=== PATIENT | male | born 1930 | race Caucasian/White ===

== ENCOUNTER 2017-08-11 13:06 | Inpatient (IN) ==
--- NOTE | 2017-08-11 13:31 | Emergency Department Report ---
Cardiac General HPI - General Stated Complaint: low pulse Time Seen by Provider: 08/11/17 13:31 - Related Data Home Medications Medication Instructions Recorded Confirmed Doxazosin Mesylate [Cardura] 4 mg PO DAILY #0 11/04/15 06/19/17 cholecalciferol (vitamin D3) 2,000 2,000 unit PO DAILY cap 12/22/16 06/19/17 unit capsule clotrimazole-betamethasone 1 1 applicatio TOP .COMPLEX PRN 12/22/16 06/19/17 %-0.05 % topical cream metoprolol tartrate 25 mg tablet 25 mg PO BID 12/22/16 06/19/17 Previous Rx's Medication Instructions Recorded Triderm (Triamcinolone acetonide 1 applicatio TOP BID #453.6 g 12/23/16 0.1 %) topical cream Allergies Allergy/AdvReac Type Severity Reaction Status Date / Time No Known Drug Allergies Allergy Unknown Verified 11/04/15 11:02 [facility] Medical History Dementia (Chronic Medical) Cluster headaches (Chronic Medical) Dyslipidemia (Chronic Medical) Macular degeneration (Chronic Medical) Hx of adenomatous colonic polyps (Chronic Medical) 1985 Hx of migraine headaches (Chronic Medical) Impotence due to erectile dysfunction (Chronic Medical) HTN (hypertension) (Chronic Medical) Surgical History: Hernia repair 1975. Eye surgery 1973 Family History: Family History Father , at age 61 Heart attack at age 56 Cancer of colon CAD (coronary artery disease) Maternal Grandfather Prostate cancer Mother , at age 89 No problems noted. - Social History Smoking status: Never smoker Alcohol intake frequency: does not drink Household members: none Current occupational status: retired Disposition Prescriptions: No Action Doxazosin Mesylate [Cardura] 4 mg PO DAILY #0 clotrimazole-betamethasone 1 %-0.05 % topical cream 1 applicatio TOP .COMPLEX PRN metoprolol tartrate 25 mg tablet 25 mg PO BID cholecalciferol (vitamin D3) 2,000 unit capsule 2,000 unit PO DAILY cap Triderm (Triamcinolone acetonide 0.1 %) topical cream 1 applicatio TOP BID # 453.6 g
[2017-08-11] MEDS: SALINE FLUSH 10ml SYRINGE IVF PRN (13:52)
--- NOTE | 2017-08-11 14:37 | XRay Report ---
Indication: bradycardia, pausing, cardiac eval PROCEDURE: XR chest 1V: Encounter: Initial Comparison: 11/04/2015 Findings: There is prominence of the cardiac silhouette which may be accentuated by the AP portable technique. The lungs are clear. There is no focal opacity to suggest atelectasis or pneumonia. No mediastinal or hilar adenopathy. No pleural effusion. There is no significant tortuosity of the descending thoracic aorta. There is mild degenerative disc disease of the thoracic spine. IMPRESSION: No acute process. .
--- NOTE | 2017-08-11 16:57 | Cardiology History & Physical ---
History of Present Illness Chief complaint: Bradycardia HPI: Gen is a 87 year old male who is known to Dr. Garcia's practice with a history of frequent PVCs, HTN, HLD, nonrheumatic tricuspid valve disorder and pulmonary HTN. Today he went to donate blood and was told is HR was too slow and he reports that it was 40, he then went to his PCPs office Dr. Craig, and they advised he go to the ED for evaluation. In the ED his EKG showed Sinus rhythm with PACs and pauses and his rate was consistently over 60. He denies any complaints such as dizziness, lightheadedness, chest pain, dyspnea. He denies recent illness, fever, chills, sore throat, cough, palpitations, N/V/D, dysuria, edema. Review of Systems - Constitutional Constitutional: Present: as per HPI - EENMT Balance: Absent: vertigo Mouth/Throat: Present: as per HPI - Cardiovascular Cardiovascular: Absent: chest pain, palpitations, syncope, dyspnea on exertion, orthopnea, edema Rhythm: Present: abnormal rhythm Vascular: Absent: pedal edema - Respiratory Respiratory: Present: as per HPI - Gastrointestinal Gastrointestinal: Present: as per HPI - Genitourinary Genitourinary: Present: as per HPI - Integumentary/Breasts Integumentary: Absent: rash - Neurological Neurological: Present: as per HPI. Absent: dizziness - Endocrine Endocrine: Present: as per HPI. Absent: palpitations PFSH Patient Stated Medical History Hearing Loss Yes: BILAT HEARING AIDS Hypertension Yes Clinic Medical History Dementia (Chronic Medical) Cluster headaches (Chronic Medical) Dyslipidemia (Chronic Medical) Macular degeneration (Chronic Medical) Hx of adenomatous colonic polyps (Chronic Medical) 1985 Hx of migraine headaches (Chronic Medical) Impotence due to erectile dysfunction (Chronic Medical) HTN (hypertension) (Chronic Medical) Surgical History: Hernia repair 1975. Eye surgery 1973 Family History: Family History Father , at age 61 Heart attack at age 56 Cancer of colon CAD (coronary artery disease) Maternal Grandfather Prostate cancer Mother , at age 89 No problems noted. - Social History Smoking status: Never smoker Substance use type: does not use Alcohol intake frequency: does not drink Housing: house Household members: none Current occupational status: retired Current residence: Apartment/Private Home Medications Home Medications Medication Instructions Recorded Confirmed Type Doxazosin Mesylate [Cardura] 4 mg PO DAILY #0 11/04/15 08/11/17 History Metoprolol Tartrate [Lopressor] 25 mg PO BID 08/11/17 08/11/17 History Allergies Allergy/AdvReac Type Severity Reaction Status Date / Time No Known Drug Allergies Allergy Unknown Verified 08/11/17 13:52 Exam Vital signs: Temperature 97.1 F 08/11/17 13:32 Pulse Rate 65 08/11/17 16:30 Respiratory Rate 14 08/11/17 16:30 Blood Pressure 163/109 H 08/11/17 16:30 Pulse Oximetry 97 08/11/17 16:30 - Constitutional no acute distress, well nourished, cooperative - Routine HEENT Exam Head: Present: normocephalic Nose: moist mucous membranes - Routine Neck Exam Absent: JVD, carotid bruit - Routine Chest/Breast/Axilla Exam Chest wall: Absent: tenderness - Routine Respiratory Exam Present: CTA bilaterally. Absent: dyspnea, rales, wheezes - Routine Cardiovascular Exam Present: RRR, S1, S2, no murmur - Routine Abdominal Exam Present: soft, normoactive bowel sounds - Routine Extremities Exam Present: no edema, pulses intact - Routine Skin Exam Present: intact, dry, warm - Routine Neurological Exam Present: alert - Routine Psychiatric Exam Present: normal affect Results 08/12/17 04:59 08/12/17 04:59 Cardiac Enzymes 08/11/17 Range/Units 13:53 AST 12 L (17-59) U/L Troponin I < 0.012 (0-0.12) ng/ml CBC 08/11/17 Range/Units 13:53 WBC 6.6 (4.5-11.0) T/MM3 RBC 5.17 (4.50-5.90) M/MM3 Hgb 13.4 L (13.5-17.5) GM/DL Hct 42.3 (41-53) % Plt Count 179 (130-400) T/MM3 Neut # (Auto) 4.4 (1.8-7.7) T/MM3 Lymph # (Auto) 1.6 (1-4.8) T/MM3 Banks # (Auto) 0.5 (0-0.8) T/MM3 Eos # (Auto) 0.1 (0-0.5) T/MM3 Baso # (Auto) 0.0 (0-0.2) T/MM3 Comprehensive Metabolic Panel 08/11/17 Range/Units 13:53 Sodium 143 (134-144) MEQ/L Potassium 4.1 (3.6-5) MEQ/L Chloride 105 (98-107) MEQ/L Carbon Dioxide 28 (22-30) MEQ/L BUN 18.0 (9-20) MG/DL Creatinine 1.1 (0.8-1.5) mg/dL Glucose 92 (75-110) MG/DL Calcium 8.9 (8.4-10.2) MG/DL AST 12 L (17-59) U/L ALT 15 (1-50) U/L Alkaline Phosphatase 63 (38-126) U/L Total Protein 6.7 (6.3-8.2) g/dL Albumin 3.8 (3.5-5.0) g/dL Intake and Output 08/11/17 08/11/17 08/11/17 06:59 14:59 22:59 Other: Weight 176 lb Patient Weight 08/12/17 06:59 Weight 176 lb - Imaging and Cardiology Echo: pending Imaging & Cardiology Narrative: Date of Exam: 08/11/17 Ordering Provider: Sam Cervantes MD Type of Exam(s): XR chest 1V Reason for Exam(s): bradycardia, pausing, cardiac eval Indication: bradycardia, pausing, cardiac eval PROCEDURE: XR chest 1V: Encounter: Initial Comparison: 11/04/2015 Findings: There is prominence of the cardiac silhouette which may be accentuated by the AP portable technique. The lungs are clear. There is no focal opacity to suggest atelectasis or pneumonia. No mediastinal or hilar adenopathy. No pleural effusion. There is no significant tortuosity of the descending thoracic aorta. There is mild degenerative disc disease of the thoracic spine. IMPRESSION: No acute process. 08/11/17 17:05 EKG interpretations - EKG EKG results cardiology: sinus rhythm - Dysrhythmias Supraventricular dysrhythmia: atrial premature complexes Hospital Course This is a general summary of the patient's hospital course. For more details refer to the complete medical record. Time spent with patient: 25 - 35 minutes Resuscitation Status: Full Code Assessment and Plan - Attestation Attestation Narrative: 08/12/17 13:41 Recommendation After examining the patient I agree with the above assessment. I am involved in the formulation of the patient's plan of care. 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 - Continue to monitor, may need to start Flecainide (4) Nonrheumatic tricuspid valve disorder Current visit: Yes Status: Chronic (5) Pulmonary hypertension Current visit: Yes Status: Chronic Condition is stable. Routine monitoring (6) Dyslipidemia Current visit: No Status: Chronic - Assessment and Plan Bradycardia:Stop Metoprolol - Continue to monitor - EKG appears Sinus with PACs and pause - Check TSH and Mag - 2D echo pending HTN: Hydralazine 10mg IV X1 - Nifedipine 60mg po now and daily PVCs: Hold Metoprolol due to pauses. - Continue to monitor, may need to start Flecainide Pulm HTN: Condition is stable. Routine monitoring NR TV disorder:Condition is stable. Routine monitoring HLD: PCP manages
[2017-08-11] MEDS ORDERED: SALINE FLUSH 10ml SYRINGE IV PRN (17:11)
[2017-08-11 17:13] VITALS: BMI 26.6
[2017-08-11] MEDS ORDERED: HYDRALAZINE 20 MG/ML INJECTION IVP ONE (17:40)
[2017-08-12] MEDS: DOXAZOSIN 4 MG TABLET PO SCH (08:21)
[2017-08-12] MEDS: ENOXAPARIN 40 MG/0.4 ML INJECTION SQ SCH (08:22)
--- NOTE | 2017-08-12 08:43 | CT Scan Report ---
Indication: stroke response PROCEDURE: CT head/brain wo con: Encounter: Initial Comparison: November 04, 2015 Technique: Axial CT images through the head were performed without contrast. Iterative Reconstruction dose reducing technique was utilized. FINDINGS: The ventricles are of normal size, shape, and contour for the patient's age. There are multiple areas of low attenuation in the white matter which most likely represent changes from chronic microvascular ischemia. The brainstem, cerebellum, and cerebral hemispheres otherwise have a normal morphology and CT attenuation. There is no evidence of midline displacement. No hemorrhage, signs of acute territorial stroke, mass effect, mass lesions, or edema is evident. The visualized portions of the skull base, midface, and calvarium demonstrate no abnormality. The paranasal sinuses are well aerated and free of significant disease. The tympanic and mastoid cavities appear normal. IMPRESSION: No acute intracranial hemorrhage or extended infarct signs. Is there is continued clinical concern for acute ischemia, MRI could be performed for further evaluation. There is a preliminary report by [employer]. .
--- NOTE | 2017-08-12 10:21 | Cardiology Progress Note ---
<Theresa Evans - Last Filed: 08/12/17 14:36> Subjective Principal diagnosis: bradycardia Interval history: Gen is seen in follow up for bradycardia and HTN. He is sitting up eating breakfast, BP is much improved, heart rate in the 80s after holding Metoprolol. Overnight he reported some blurry vision and slow verbal response. He denies chest pain, pressure, palpitations, dyspnea or dizziness. Exam Vital signs: Temperature 97.9 F 08/12/17 07:31 Pulse Rate 84 08/12/17 08:30 Respiratory Rate 32 H 08/12/17 08:30 Blood Pressure 115/74 08/12/17 08:30 Pulse Oximetry 95 08/12/17 08:30 Inpatient Medications: Generic Name Dose Route Start Last Admin Trade Name Freq PRN Reason Stop Dose Admin Aspirin 81 mg 08/12/17 09:00 Ecotrin PO DAILY MALGORZATA Doxazosin Mesylate 4 mg 08/12/17 09:00 08/12/17 08:21 Cardura PO 4 mg DAILY MALGORZATA Administration Enoxaparin Sodium 40 mg 08/12/17 09:00 08/12/17 08:22 Lovenox SQ 40 mg DAILY MALGORZATA Administration Nifedipine 60 mg 08/11/17 18:00 08/11/17 20:49 Procardia Xl PO 60 mg DAILY MALGORZATA Administration Sodium Chloride 10 - 80 ml 08/11/17 13:36 08/11/17 13:52 Iv Flush IVF 10 ml PRN PRN Administration Flushing Sodium Chloride 10 - 80 ml 08/11/17 17:11 Iv Flush IV PRN PRN Flushing Discontinued Medications Generic Name Dose Route Start Last Admin Trade Name Freq PRN Reason Stop Dose Admin Hydralazine HCl 10 mg 08/11/17 17:40 08/11/17 18:35 Apresoline IVP 08/11/17 17:41 10 mg O ONE Administration Sodium Chloride 500 mls @ 500 mls/hr 08/11/17 13:36 08/11/17 16:55 Normal Saline IV 08/11/17 14:35 Infused .Q1H ONE Infusion - Constitutional no acute distress, well nourished, cooperative - Routine HEENT Exam Head: Present: normocephalic ENT: Present: mucous membranes moist - Routine Neck Exam Absent: JVD, carotid bruit - Routine Chest/Breast/Axilla Exam Chest wall: Absent: tenderness - Routine Respiratory Exam Present: CTA bilaterally. Absent: rales, wheezes - Routine Cardiovascular Exam Present: RRR, S1, S2, no murmur - Routine Abdominal Exam Present: soft, normoactive bowel sounds, non tender - Routine Extremities Exam Present: no edema - Routine Skin Exam Present: intact, dry, warm - Routine Neurological Exam Present: alert. Absent: hearing grossly intact - Routine Psychiatric Exam Present: normal affect Results 08/12/17 04:59 08/12/17 04:59 Cardiac Enzymes 08/11/17 08/12/17 Range/Units 17:31 00:13 Troponin I < 0.012 < 0.012 (0-0.12) ng/ml Coagulation 08/11/17 Range/Units 20:40 APTT 27.5 (24-36) SEC CBC 08/11/17 08/12/17 Range/Units 20:40 04:59 WBC 6.2 6.9 (4.5-11.0) T/MM3 RBC 5.42 5.36 (4.50-5.90) M/MM3 Hgb 14.0 13.7 (13.5-17.5) GM/DL Hct 44.0 43.0 (41-53) % Plt Count 182 180 (130-400) T/MM3 Neut # (Auto) 3.9 (1.8-7.7) T/MM3 Lymph # (Auto) 1.6 (1-4.8) T/MM3 Wilkin # (Auto) 0.4 (0-0.8) T/MM3 Eos # (Auto) 0.2 (0-0.5) T/MM3 Baso # (Auto) 0.0 (0-0.2) T/MM3 Comprehensive Metabolic Panel 08/12/17 Range/Units 04:59 Sodium 144 (134-144) MEQ/L Potassium 3.8 (3.6-5) MEQ/L Chloride 109 H (98-107) MEQ/L Carbon Dioxide 24 (22-30) MEQ/L BUN 18.0 (9-20) MG/DL Creatinine 0.9 D (0.8-1.5) mg/dL Glucose 93 (75-110) MG/DL Calcium 8.6 (8.4-10.2) MG/DL Intake and Output 08/11/17 08/12/17 08/12/17 22:59 06:59 14:59 Intake Total 620 / 620 240 / 240 Balance 620 / 620 240 / 240 Intake: IV 500 / 500 NS 500ml 500 ml @ 500 mls/hr IV 500 / 500 .Q1H ONE Rx#:[id number] Oral 120 / 120 240 / 240 Other: Stool Color Brown Stool Consistency Soft Size of Bowel Movement Small # Voids 1 1 # Bowel Movements 1 Weight 169 lb 15.622 oz - Imaging and Cardiology Echo: pending Imaging & Cardiology Narrative: Date of Exam: 08/11/17 Ordering Provider: Crystal Reagan APRN Type of Exam(s): CT head/brain wo con Reason for Exam(s): stroke response Indication: stroke response PROCEDURE: CT head/brain wo con: Encounter: Initial Comparison: November 04, 2015 Technique: Axial CT images through the head were performed without contrast. Iterative Reconstruction dose reducing technique was utilized. FINDINGS: The ventricles are of normal size, shape, and contour for the patient's age. There are multiple areas of low attenuation in the white matter which most likely represent changes from chronic microvascular ischemia. The brainstem, cerebellum, and cerebral hemispheres otherwise have a normal morphology and CT attenuation. There is no evidence of midline displacement. No hemorrhage, signs of acute territorial stroke, mass effect, mass lesions, or edema is evident. The visualized portions of the skull base, midface, and calvarium demonstrate no abnormality. The paranasal sinuses are well aerated and free of significant disease. The tympanic and mastoid cavities appear normal. IMPRESSION: No acute intracranial hemorrhage or extended infarct signs. Is there is continued clinical concern for acute ischemia, MRI could be performed for further evaluation. There is a preliminary report by [employer] [facility]. 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 - Continue to monitor, may need to start Flecainide Pulm HTN: Condition is stable. Routine monitoring NR TV disorder:Condition is stable. Routine monitoring HLD: PCP manages 08/12/[address] Medina for neuro symptoms ( Thank you for your assistance) - MRI brain/head w/o contrast - Aspirin 81mg daily Worsened frequency since stopping Metoprolol - Start Flecainide 100mg po then 50mg BID - EKG in am Hospital Course Summary Disclaimer: The visit summary below is not to be considered part of the above Progress Note. <Axel Garcia - Last Filed: 08/13/17 12:08> Exam Vital signs: Temperature 98.1 F 08/13/17 11:04 Pulse Rate 81 08/13/17 11:38 Respiratory Rate 16 08/13/17 11:04 Blood Pressure 126/75 08/13/17 11:04 Pulse Oximetry 94 08/13/17 11:04 Inpatient Medications: Generic Name Dose Route Start Last Admin Trade Name Freq PRN Reason Stop Dose Admin Aspirin 81 mg 08/12/17 09:00 08/13/17 08:44 Ecotrin PO 81 mg DAILY MALGORZATA Administration Doxazosin Mesylate 4 mg 08/12/17 09:00 08/13/17 08:45 Cardura PO 4 mg DAILY MALGORZATA Administration Enoxaparin Sodium 40 mg 08/12/17 09:00 08/13/17 08:45 Lovenox SQ 40 mg DAILY MALGORZATA Administration Flecainide Acetate 50 mg 08/12/17 21:00 08/13/17 08:44 Tambocor PO 50 mg BID MALGORZATA Administration Nifedipine 60 mg 08/11/17 18:00 08/13/17 08:46 Procardia Xl PO 60 mg DAILY MALGORZATA Administration Sodium Chloride 10 - 80 ml 08/11/17 13:36 08/12/17 20:00 Iv Flush IVF 10 ml PRN PRN Administration Flushing Sodium Chloride 10 - 80 ml 08/11/17 17:11 Iv Flush IV PRN PRN Flushing Discontinued Medications Generic Name Dose Route Start Last Admin Trade Name Freq PRN Reason Stop Dose Admin Flecainide Acetate 100 mg 08/12/17 13:50 08/12/17 14:16 Tambocor PO 08/12/17 13:51 100 mg O ONE Administration Hydralazine HCl 10 mg 08/11/17 17:40 08/11/17 18:35 Apresoline IVP 08/11/17 17:41 10 mg O ONE Administration Sodium Chloride 500 mls @ 500 mls/hr 08/11/17 13:36 08/11/17 16:55 Normal Saline IV 08/11/17 14:35 Infused .Q1H ONE Infusion Results 08/12/17 04:59 08/12/17 04:59 Intake and Output 08/12/17 08/13/17 08/13/17 22:59 06:59 14:59 Intake Total 840 / 840 50 / 50 590 / 590 Balance 840 / 640 50 / 50 590 / 590 Intake: Oral 840 / 840 50 / 50 590 / 590 Other: Urine Appearance Clear Urine Color Yellow Urine Odor Normal # Voids 1 1 # Incontinent Voids 1 Weight 76.3 kg Patient Weight 08/14/17 06:59 Weight 76.3 kg Assessment and Plan - Assessment and Plan (1) HTN (hypertension) Current visit: No Status: Chronic (2) Dyslipidemia Current visit: No Status: Chronic (3) Nonrheumatic tricuspid valve disorder Current visit: Yes Status: Chronic (4) Pulmonary hypertension Current visit: Yes Status: Chronic (5) 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 I am involved in the formulation of the patient's plan of care. Hospital Course Summary Disclaimer: The visit summary below is not to be considered part of the above Progress Note.
--- NOTE | 2017-08-12 12:42 | Magnetic Resonance Report ---
Indication: slurred speech, vision changes PROCEDURE: MR head/brain wo con: Encounter: Initial Comparisons: Head CT from yesterday Technique: Multiplanar, multisequence, MR imaging of the head without contrast was acquired. FINDINGS: Motion artifact. Moderate generalized atrophy. The ventricles are of normal size, shape, and contour for the patient's age. There are small nonspecific punctate areas of T2-weighted and T2 FLAIR weighted signal abnormality in the deep frontoparietal white matter that most likely represent small vessel ischemic disease. This is of a degree that is considered to be normal for the patient's age. The brain stem, cerebellum, and cerebral hemispheres otherwise have a normal morphologic appearance as well as MR signal intensity on all pulse sequences. There are no areas of restricted diffusion on diffusion weighted imaging to suggest an acute infarct. There is no evidence of an intracranial mass lesion, intracranial hemorrhage, or hydrocephalus. The visualized portions of the orbits, calvarium, paranasal sinuses, and skull base demonstrate no significant abnormality. IMPRESSION: Slightly limited exam due to motion artifact. No acute infarct or acute intracranial abnormality seen. .
[2017-08-12] MEDS ORDERED: FLECAINIDE 100 MG TABLET PO ONE (13:50)
[2017-08-12] MEDS: ASPIRIN *EC* 81 MG TABLET PO SCH (14:17)
--- NOTE | 2017-08-12 14:40 | Echocardiogram ---
DATE OF PROCEDURE August 11, 2017 This is a two-dimensional echo with spectral Doppler, color-flow and M-mode. It was obtained in a patient with bradycardia. Left atrium is dilated. Left ventricular end-diastolic dimension is normal. Left ventricle wall thickness is increased. LV systolic function is normal with ejection fraction of about 59%. Right atrium is normal. Right ventricle is normal. Aortic root dimension is mildly increased. Mitral valve is morphologically normal with moderate mitral regurgitation. Aortic valve is a trileaflet structure with no stenosis or insufficiency. Tricuspid valve shows moderate tricuspid regurgitation with moderate pulmonary hypertension with estimated pulmonary artery systolic pressure of 61. Pulmonary valve shows mild pulmonary insufficiency. There is trace of pericardial effusion with no echocardiographic evidence of tamponade. IMPRESSION 1. Normal LV systolic function with ejection fraction of 59%. 2. Left atrial dilation. 3. Mild aortic root dilation at 3.8 cm. 4. Concentric left ventricular hypertrophy. 5. Moderate mitral regurgitation. 6. Moderate tricuspid regurgitation with moderate pulmonary hypertension with estimated pulmonary artery systolic pressure of 61. 7. Mild pulmonary insufficiency. 8. Trace of pericardial effusion with no echocardiographic evidence of tamponade. MTDD
--- NOTE | 2017-08-12 14:52 | Consultation ---
DATE OF CONSULTATION 08/12/[address] Garcia CHIEF COMPLAINT Blurry vision. HISTORY OF PRESENT ILLNESS The patient is an 87-year-old male with history of dementia, cluster headache, dyslipidemia, macular degeneration, hypertension and coronary artery disease. The patient presented to [facility] with sudden-onset bradycardia and fatigue. The patient was trying to donate blood earlier yesterday in [place], [place] and he was found to have a heart rate in the 40s. The patient was brought to [facility] and he was admitted to the ICU. He has had episodes of blurry vision and difficulty reading what's written on the TV screen. This happened twice since admission. The first time was yesterday evening and this happened again earlier this morning. The patient denies having any headache or vision loss in either eye. He has had no focal weakness or numbness. There was no obvious change in his speech or language witnessed by the nurse or the other physicians. The patient is currently stable and has no particular complaints. PHYSICAL EXAMINATION The patient was awake, alert, oriented x 3. Speech was slightly dysarthric earlier in the conversation and this has improved gradually during the conversation. He had no difficulty naming or listing items. His pupils were round, reactive and equal. The extraocular muscles were intact. Visual field was full. Motor examination in the extremities was 5/5. Sensory examination was symmetrical to light touch and temperature sensation. Deep tendon reflexes were 2/4. Plantar reflexes were equivocal bilaterally. Coordination for finger -to-nose was slow bilaterally. ASSESSMENT 1. Recurrent blurry vision which can be associated with hypotension and change in heart rate. This was not fully appreciated based on the patient's monitoring. 2. We cannot rule out a small vessel stroke causing the patient to have difficulty reading and expressing himself. PLAN 1. Agree with MRI of the brain to rule out acute ischemic stroke. 3. Monitor the patient's blood pressure and heart rate closely and provide good fluid intake. 4. If the patient's vision keeps fluctuating he may need to have an eye examination in the outpatient setting. JOSE
[2017-08-12] MEDS: FLECAINIDE 100 MG TABLET PO SCH (20:00)
[2017-08-12] MEDS: SALINE FLUSH 10ml SYRINGE IVF PRN (20:00)
[2017-08-13 07:30] VITALS: RESP 16
[2017-08-13] MEDS: FLECAINIDE 100 MG TABLET PO SCH (08:44)
[2017-08-13] MEDS: ASPIRIN *EC* 81 MG TABLET PO SCH (08:44)
[2017-08-13] MEDS: DOXAZOSIN 4 MG TABLET PO SCH (08:45)
[2017-08-13] MEDS: ENOXAPARIN 40 MG/0.4 ML INJECTION SQ SCH (08:45)
[2017-08-13 11:05] VITALS: TEMP 98.1
--- NOTE | 2017-08-13 11:55 | Discharge Summary ---
<Theresa Evans - Last Filed: 08/13/17 11:52> Discharge Information Date of admission: 08/12/17 16:29 Anticipated date of discharge: 08/13/17 Attending Physician: Axel Garcia MD Primary care physician: Freddie Craig MD Consults: DATE OF CONSULTATION 08/12/[address] Garcia CHIEF COMPLAINT Blurry vision. HISTORY OF PRESENT ILLNESS The patient is an 87-year-old male with history of dementia, cluster headache, dyslipidemia, macular degeneration, hypertension and coronary artery disease. The patient presented to [facility] with sudden-onset bradycardia and fatigue. The patient was trying to donate blood earlier yesterday in [place], [place] and he was found to have a heart rate in the 40s. The patient was brought to [facility] and he was admitted to the ICU. He has had episodes of blurry vision and difficulty reading what's written on the TV screen. This happened twice since admission. The first time was yesterday evening and this happened again earlier this morning. The patient denies having any headache or vision loss in either eye. He has had no focal weakness or numbness. There was no obvious change in his speech or language witnessed by the nurse or the other physicians. The patient is currently stable and has no particular complaints. PHYSICAL EXAMINATION The patient was awake, alert, oriented x 3. Speech was slightly dysarthric earlier in the conversation and this has improved gradually during the conversation. He had no difficulty naming or listing items. His pupils were round, reactive and equal. The extraocular muscles were intact. Visual field was full. Motor examination in the extremities was 5/5. Sensory examination was symmetrical to light touch and temperature sensation. Deep tendon reflexes were 2/4. Plantar reflexes were equivocal bilaterally. Coordination for finger -to-nose was slow bilaterally. ASSESSMENT 1. Recurrent blurry vision which can be associated with hypotension and change in heart rate. This was not fully appreciated based on the patient's monitoring. 2. We cannot rule out a small vessel stroke causing the patient to have difficulty reading and expressing himself. PLAN 1. Agree with MRI of the brain to rule out acute ischemic stroke. 3. Monitor the patient's blood pressure and heart rate closely and provide good fluid intake. 4. If the patient's vision keeps fluctuating he may need to have an eye examination in the outpatient setting. 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 FINDINGS: Motion artifact. Moderate generalized atrophy. The ventricles are of normal size, shape, and contour for the patient's age. There are small nonspecific punctate areas of T2-weighted and T2 FLAIR weighted signal abnormality in the deep frontoparietal white matter that most likely represent small vessel ischemic disease. This is of a degree that is considered to be normal for the patient's age. The brain stem, cerebellum, and cerebral hemispheres otherwise have a normal morphologic appearance as well as MR signal intensity on all pulse sequences. There are no areas of restricted diffusion on diffusion weighted imaging to suggest an acute infarct. There is no evidence of an intracranial mass lesion, intracranial hemorrhage, or hydrocephalus. The visualized portions of the orbits, calvarium, paranasal sinuses, and skull base demonstrate no significant abnormality. IMPRESSION: Slightly limited exam due to motion artifact. No acute infarct or acute intracranial abnormality seen. Date of Exam: 08/11/17 Ordering Provider: Crystal Reagan APRN Type of Exam(s): CT head/brain wo con Reason for Exam(s): stroke response Indication: stroke response PROCEDURE: CT head/brain wo con: Encounter: Initial Comparison: November 04, 2015 Technique: Axial CT images through the head were performed without contrast. Iterative Reconstruction dose reducing technique was utilized. FINDINGS: The ventricles are of normal size, shape, and contour for the patient's age. There are multiple areas of low attenuation in the white matter which most likely represent changes from chronic microvascular ischemia. The brainstem, cerebellum, and cerebral hemispheres otherwise have a normal morphology and CT attenuation. There is no evidence of midline displacement. No hemorrhage, signs of acute territorial stroke, mass effect, mass lesions, or edema is evident. The visualized portions of the skull base, midface, and calvarium demonstrate no abnormality. The paranasal sinuses are well aerated and free of significant disease. The tympanic and mastoid cavities appear normal. IMPRESSION: No acute intracranial hemorrhage or extended infarct signs. Is there is continued clinical concern for acute ischemia, MRI could be performed for further evaluation. There is a preliminary report by [employer]. History of Present Illness HPI: Gen is a 87 year old male who is known to Dr. Garcia's practice with a history of frequent PVCs, HTN, HLD, nonrheumatic tricuspid valve disorder and pulmonary HTN. Today he went to donate blood and was told is HR was too slow and he reports that it was 40, he then went to his PCPs office Dr. Craig, and they advised he go to the ED for evaluation. In the ED his EKG showed Sinus rhythm with PACs and pauses and his rate was consistently over 60. He denies any complaints such as dizziness, lightheadedness, chest pain, dyspnea. He denies recent illness, fever, chills, sore throat, cough, palpitations, N/V/D, dysuria, edema. Hospital Course This is a general summary of the patient's hospital course. For more details refer to the complete medical record. Hospital course: 08/11/17 Bradycardia:Stop Metoprolol - Continue to monitor - EKG appears Sinus with PACs and pause - Check TSH and Mag - 2D echo pending HTN: Hydralazine 10mg IV X1 - Nifedipine 60mg po now and daily PVCs: Hold Metoprolol due to pauses. - Continue to monitor, may need to start Flecainide Pulm HTN: Condition is stable. Routine monitoring NR TV disorder:Condition is stable. Routine monitoring HLD: PCP manages 08/12/[address] Medina for neuro symptoms ( Thank you for your assistance) - MRI brain/head w/o contrast - Aspirin 81mg daily Worsened frequency since stopping Metoprolol - Start Flecainide 100mg po then 50mg BID - EKG in am Time spent with patient: 25 - 35 minutes Resuscitation Status: Full Code Exam Vital signs: Temperature 98.1 F 08/13/17 11:04 Pulse Rate 81 08/13/17 11:38 Respiratory Rate 16 08/13/17 11:04 Blood Pressure 126/75 08/13/17 11:04 Pulse Oximetry 94 08/13/17 11:04 - Constitutional no acute distress, well nourished, cooperative - Routine HEENT Exam Head: Present: normocephalic ENT: Present: mucous membranes moist - Routine Neck Exam Absent: JVD, carotid bruit - Routine Chest/Breast/Axilla Exam Chest wall: Absent: tenderness - Routine Respiratory Exam Present: CTA bilaterally. Absent: dyspnea, rales, wheezes - Routine Cardiovascular Exam Present: RRR, S1, S2, no murmur. Absent: JVD - Routine Abdominal Exam Present: soft, non tender - Routine Extremities Exam Present: no edema - Routine Skin Exam Present: intact, dry, warm - Routine Neurological Exam Present: alert - Routine Psychiatric Exam Present: normal affect Results 08/12/17 04:59 08/12/17 04:59 Intake and Output 08/12/17 08/13/17 08/13/17 22:59 06:59 14:59 Intake Total 840 / 840 50 / 50 590 / 590 Balance 840 / 640 50 / 50 590 / 590 Intake: Oral 840 / 840 50 / 50 590 / 590 Other: Urine Appearance Clear Urine Color Yellow Urine Odor Normal # Voids 1 1 # Incontinent Voids 1 Weight 168 lb 3.403 oz Patient Weight 08/14/17 06:59 Weight 168 lb 3.403 oz - Imaging and Cardiology Imaging & Cardiology Narrative: Date of Exam: 08/11/17 Ordering Provider: Sam Cervantes MD Type of Exam(s): XR chest 1V Reason for Exam(s): bradycardia, pausing, cardiac eval Indication: bradycardia, pausing, cardiac eval PROCEDURE: XR chest 1V: Encounter: Initial Comparison: 11/04/2015 Findings: There is prominence of the cardiac silhouette which may be accentuated by the AP portable technique. The lungs are clear. There is no focal opacity to suggest atelectasis or pneumonia. No mediastinal or hilar adenopathy. No pleural effusion. There is no significant tortuosity of the descending thoracic aorta. There is mild degenerative disc disease of the thoracic spine. IMPRESSION: No acute process. 08/13/17 11:53 08/13/17 11:54 = = = = = = = = = = = = = = = = = = = = = = = = = = = = = = = = = = = = = = = = = = = = = = = = = = = = = = = = = = = Date of Exam: 08/11/17 Type of Exam(s): US echo doppler complete DATE OF PROCEDURE August 11, 2017 This is a two-dimensional echo with spectral Doppler, color-flow and M-mode. It was obtained in a patient with bradycardia. Left atrium is dilated. Left ventricular end-diastolic dimension is normal. Left ventricle wall thickness is increased. LV systolic function is normal with ejection fraction of about 59%. Right atrium is normal. Right ventricle is normal. Aortic root dimension is mildly increased. Mitral valve is morphologically normal with moderate mitral regurgitation. Aortic valve is a trileaflet structure with no stenosis or insufficiency. Tricuspid valve shows moderate tricuspid regurgitation with moderate pulmonary hypertension with estimated pulmonary artery systolic pressure of 61. Pulmonary valve shows mild pulmonary insufficiency. There is trace of pericardial effusion with no echocardiographic evidence of tamponade. IMPRESSION 1. Normal LV systolic function with ejection fraction of 59%. 2. Left atrial dilation. 3. Mild aortic root dilation at 3.8 cm. 4. Concentric left ventricular hypertrophy. 5. Moderate mitral regurgitation. 6. Moderate tricuspid regurgitation with moderate pulmonary hypertension with estimated pulmonary artery systolic pressure of 61. 7. Mild pulmonary insufficiency. 8. Trace of pericardial effusion with no echocardiographic evidence of tamponade. - EKG Interpretation EKG: sinus rhythm (incomplete RBBB, LAFB, QTC 425) Discharge Plan - Med Rec/Dispo Referrals/Follow Up: Axel Garcia MD [Physician] - 09/03/17 2:20 pm Freddie Craig MD [Family Provider] - [facility] Instructions: Flecainide (By mouth) (Tambocor) Prescriptions: New Flecainide [Tambocor] 50 mg PO BID #30 tab NIFEdipine XL [Procardia Xl] 60 mg PO DAILY #30 tab Continue Doxazosin Mesylate [Cardura] 4 mg PO DAILY #0 Discontinued Metoprolol Tartrate [Lopressor] 25 mg PO BID No Action aspirin 325 mg tablet 325 mg PO DAILY #90 tab - Disposition [facility] - Dismissal Complete Discharge Instructions are:: Complete <Axel Garcia - Last Filed: 08/25/17 13:55> Discharge Information Date of admission: 08/12/17 16:29 Attending Physician: Axel Garcia MD Primary care physician: Freddie Craig MD - Discharge Diagnosis (1) HTN (hypertension) Status: Chronic (2) Dyslipidemia Status: Chronic (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 For more details refer to the complete medical record. Exam Vital signs: Temperature 98.1 F 08/13/17 11:04 Pulse Rate 93 08/13/17 15:53 Respiratory Rate 16 08/13/17 15:53 Blood Pressure 102/63 08/13/17 15:53 Pulse Oximetry 96 08/13/17 15:53 Results 08/12/17 04:59 08/12/17 04:59 Attestation Narriative - Attestation Attestation Narrative: 08/25/17 13:55 Recommendation After examining the patient I agree with the above assessment. I am involved in the formulation of the patient's plan of care.
[2017-08-13 15:54] VITALS: BP 102/63; PULSE 93; O2SAT 96
== END 2017-08-13 17:17 | disposition home health service (06) | DRG 310 ==
LOC: ED 13:06 → CCU 13:06 → SRG 08-12 16:12
PROVIDERS: ADMIT Internal Medicine Cardiovascular Disease; ATTEND Internal Medicine Cardiovascular Disease